=== PATIENT | female | born 1960 | race Caucasian/White ===

== ENCOUNTER 2016-10-18 10:05 | Emergency (ER) | payer BC ==
--- NOTE | 2016-10-18 10:29 | EDM.PDOC ---
ED HPI DIZZINESS - General Chief Complaint: OTOLARYNGOLOGY SURGEON Problem Stated Complaint: LIGHTHEADED, HEAVY MENSTRAL Time Seen by Provider: 10/18/16 10:23 Source of Information: Reports: Patient Exam Limitations: Reports: No limitations - History of Present Illness INITIAL COMMENTS - FREE TEXT/NARRATIVE: Pt states that she had been having heavy bleeding for the past 3 days and this am had an episode of lightheadedness with lying down. States that she has been bleeding for 2 months and was starting on high dose estrogen 5 days ago. Symptom Onset Date: 10/18/16 Timing/Duration: Reports: Resolved prior to arrival Baseline Function: Reports: ambulatory Quality: Reports: lightheaded Severity: moderate Improves With: Reports: sitting Worsens With: Reports: laying down - Related Data Allergies/ADRs: Allergies Allergy/AdvReac Type Severity Reaction Status Date / Time No Known Allergies Allergy Verified 10/18/16 10:25 ED ROS GENERAL - Review of Systems Review Of Systems: ROS reveals no pertinent complaints other than HPI. Cardiovascular: Reports: Lightheadedness : Reports: irregular menses ED EXAM, DIZZINESS - Physical Exam Exam: See Below Exam Limited By: No limitations General Appearance: alert, WD/WN, no apparent distress Eye Exam: bilateral eye: PERRL Ears: normal external exam, normal canal, hearing grossly normal, normal TMs Nose: normal inspection, normal mucosa, no blood Throat/Mouth: Normal inspection, Normal lips, Normal teeth, Normal gums, Normal oropharynx, Normal voice, No airway compromise Head Exam: atraumatic, normocephalic Respiratory/Chest: no respiratory distress, lungs clear, normal breath sounds, no accessory muscle use, chest non-tender Cardiovascular: normal peripheral pulses, regular rate, rhythm, no edema, no gallop, no JVD, no murmur, no rub GI/Abdominal: normal bowel sounds, soft, non tender, no organomegaly, no distention, no abnormal bruit, no mass (Female) Exam: Vaginal bleeding Neurological: alert, normal mood/affect, normal dorsiflexion, CN II-XII intact, normal plantar flexion, normal gait, normal reflexes, no motor/sensory deficits , oriented x 3 Course - Vital Signs Last Recorded V/S: Last Vital Signs Temp 98.6 F 10/18/16 10:21 Pulse 74 10/18/16 10:21 Resp 16 10/18/16 10:21 BP 121/68 10/18/16 10:21 Pulse Ox 100 10/18/16 10:21 - Orders/Labs/Meds Orders: HBG slightly decreased. Pt informed to continue iron supplements and follow up next week with OTOLARYNGOLOGY SURGEON. Encouraged fluids. Labs: Laboratory Tests 10/18/16 10/18/16 Range/Units 10:35 10:35 WBC 4.8 L (5.0-10.0) 10^3/uL RBC 3.97 L (4.2-5.4) 10^6/uL Hgb 11.7 L (12.0-16.0) g/dL Hct 34.6 L (37.0-47.0) % MCV 87.2 (80-100) fL MCH 29.5 (27.0-34.0) pg MCHC 33.8 (33.0-35.0) g/dL Plt Count 241 (150-450) 10^3/uL Neut % (Auto) 62.1 (42.2-75.2) % Lymph % (Auto) 24.5 (20.5-50.1) % [place] % (Auto) 9.0 H (2-8) % Eos % (Auto) 3.6 H (1.0-3.0) % Baso % (Auto) 0.8 (0.0-1.0) % Sodium 135 (135-145) mmol/L Potassium 4.4 (3.6-5.0) mmol/L Chloride 101 (101-111) mmol/L Carbon Dioxide 28.0 (21.0-31.0) mmol/L Anion Gap 10.4 BUN 20 H (7-18) mg/dL Creatinine 0.9 (0.6-1.3) mg/dL Est Cr Clr Drug Dosing 58.42 mL/min Estimated GFR (MDRD) > 60 Glucose 105 (74-105) mg/dL Calcium 8.8 (8.4-10.2) mg/dl Departure - Departure Time of Disposition: 11:11 Disposition: Home, Self-Care 01 Condition: good Clinical Impression: Lightheaded, Uterine bleeding, dysfunctional Instructions: Dysmenorrhea, [id number] Forms: ED Department Discharge Additional Instructions: Make sure to keep your appointment with your OTOLARYNGOLOGY SURGEON. Drink plenty of fluids and continue the estrogen and iron supplements as prescribed. Return for any worsening symptoms.
[2016-10-18 11:00] LABS: CHLORIDE,CL 101 mmol/L (101-111); SODIUM,NA 135 mmol/L (135-145)
[2016-10-18 11:25] VITALS: BP 103/61
== END 2016-10-18 11:20 | disposition home or self-care (01) ==
LOC: DL.ED 10:05
DX: N93.8 Other specified abnormal uterine and vaginal bleeding (principal); R42 Dizziness and giddiness
CPT/HCPCS: 36415; 80048; 85025; 99284